=== PATIENT | female | born 1965 | race Caucasian/White ===

== ENCOUNTER 2022-08-11 16:18 | Inpatient (IN) | payer MEDICAID ==
[~2022-08-11] VITALS: Ht 157.5 cm; Wt 50.5 kg
[~2022-08-11 16:18] MED LIST: ATEN50TA41 PO; NICO-687 TD
[2022-08-11 16:37] LABS: BASOPHILS # (AUTO) 0.1 X10'3 (0-0.2); BASOPHILS % (AUTO) 0.9 % (0-1); EOSINOPHILS # (AUTO) 0.1 X10'3 (0-0.9); EOSINOPHILS % (AUTO) 0.7 % (0-6); HEMATOCRIT 22.6 % (35.0-45.0); HEMOGLOBIN 7.7 g/dl (12.0-16.0); LYMPHOCYTES # (AUTO) 1.1 X10'3 (1.1-4.8); LYMPHOCYTES % (AUTO) 8.1 % (21-51); MEAN CORPUSCULAR HEMOGLOBIN 32.1 PG (27.0-31.0); MEAN CORPUSCULAR HGB CONC 34.1 g/dL (33.0-36.5); MEAN CORPUSCULAR VOLUME 94.2 FL (78-98); MEAN PLATELET VOLUME 7.6 FL (7.4-10.4); MONOCYTES # (AUTO) 0.9 X10'3 (0-0.9); MONOCYTES % (AUTO) 6.6 % (2-12); NEUTROPHILS # (AUTO) 11.9 X10'3 (1.8-7.7); NEUTROPHILS % (AUTO) 83.7 % (42-75); PLATELET COUNT 574 X10'3 (140-440); RED CELL DISTRIBUTION WIDTH 18.2 % (11.5-14.5); WHITE BLOOD COUNT 14.2 X10'3 (4.5-11.0)
[2022-08-11 17:00] LABS: ALANINE AMINOTRANSFERASE 10 U/L (12-78); ALBUMIN 2.4 G/DL (3.4-5.0); ALBUMIN/GLOBULIN RATIO 0.9 (1.1-1.5); ALKALINE PHOSPHATASE 74 IU/L (46-116); ANION GAP 10 (8-16); ASPARTATE AMINO TRANSFERASE 17 U/L (10-37); BILIRUBIN,TOTAL 0.2 MG/DL (0.1-1.0); BLOOD UREA NITROGEN 10 MG/DL (7-18); BUN/CREATININE RATIO 10.6 (10.0-20.0); CALCIUM 8.3 MG/DL (8.5-10.1); CHLORIDE 96 MMOL/L (99-107); CREATININE 0.94 MG/DL (0.40-0.90); GLUCOSE 132 MG/DL (70-104); MAGNESIUM 1.8 MG/DL (1.5-2.4); SODIUM 130 MMOL/L (135-145); TOTAL CARBON DIOXIDE 24.2 MMOL/L (24-32); TOTAL PROTEIN 5.2 G/DL (6.4-8.2); eGFR 61 ML/MIN
[2022-08-11 17:10] LABS: POTASSIUM 2.2 MMOL/L (3.5-5.1)
[2022-08-11] MEDS ORDERED: potassium chloride 10mEq ER tablet PO ONE (17:15)
[2022-08-11] MEDS ORDERED: Potassium Cl inj 40 MEQ in normal saline 250ml IV soln 250 ML IV ONE (17:15)
[2022-08-11] MEDS ORDERED: Potassium Cl inj 40 MEQ in sodium chloride 0.45% 500ml 500 ML IV ONE (17:20)
--- NOTE | 2022-08-11 18:23 | NUR ---
ASSUMED CARE FROM MELVIN MANN
[2022-08-11 18:50] LABS: ABSOLUTE RETICS # < 6000 /CUMM (23000-93000); RETICULOCYTE % (AUTO) 4.1 % (0.5-1.5)
[2022-08-11] MEDS ORDERED: oxyCODONE/APAP 10/325mg tablet PO ONE (18:55)
[2022-08-11] MEDS ORDERED: FERR325T29 PO (19:07)
[2022-08-11] MEDS ORDERED: ACET-75 PO (19:07)
[2022-08-11] MEDS ORDERED: KEN0.1O TOP (19:07)
[2022-08-11] MEDS ORDERED: FOLI1TAB27 PO (19:07)
[2022-08-11] MEDS ORDERED: ASPI-1397 PO (19:07)
[2022-08-11] MEDS ORDERED: ATEN-236 PO (19:07)
[2022-08-11] MEDS ORDERED: DICL100G30 TOP (19:07)
[2022-08-11] MEDS ORDERED: CYCL5TAB PO (19:07)
[2022-08-11] MEDS ORDERED: LISI10TA27 PO (19:07)
[2022-08-11] MEDS ORDERED: pantoprazole 40mg IV 80 MG in normal saline 100ml IV soln 100 ML IV ONE (19:10)
[2022-08-11 19:39] LABS: OCCULT BLOOD STOOL POSITIVE (Neg)
--- NOTE | 2022-08-11 19:40 | NUR ---
DR GUPTA AT BEDSIDE
[2022-08-11] MEDS ORDERED: magnesium 4gm in 100ml NS 100 ML IV PRN (20:00)
[2022-08-11] MEDS: K and/or MAG REPLACEMENT MC SCH (20:00)
[2022-08-11] MEDS ORDERED: magnesium hydroxide 30ml (MOM) UD suspension PO PRN (20:00)
[2022-08-11] MEDS ORDERED: acetaminophen 325mg tablet PO PRN ×2 (20:00→20:05)
[2022-08-11] MEDS ORDERED: mag hydrox/Alum hydrox/simeth 30ml oral suspension PO PRN (20:00)
[2022-08-11] MEDS ORDERED: magnesium Cl slow-release 64mg tablet PO PRN (20:00)
[2022-08-11] MEDS ORDERED: potassium Cl 20 mEq SR tablet PO PRN ×2 (20:00)
[2022-08-11] MEDS ORDERED: magnesium 2GM in 50ml NS 50 ML IV PRN (20:00)
[2022-08-11] MEDS ORDERED: potassium Cl 40MEQ/1/2NS 520ml 520 ML IV PRN (20:00)
[2022-08-11] MEDS ORDERED: ondansetron/PF 4mg/2ml inj IV PRN (20:00)
[2022-08-11 20:25] LABS: BASOPHILS % (AUTO) 0.3 % (0-1); EOSINOPHILS % (AUTO) 0.2 % (0-6); HEMATOCRIT 22.1 % (35.0-45.0); HEMOGLOBIN 7.7 g/dl (12.0-16.0); LYMPHOCYTES # (AUTO) 1.1 X10'3 (1.1-4.8); LYMPHOCYTES % (AUTO) 7.2 % (21-51); MEAN CORPUSCULAR VOLUME 94.1 FL (78-98); MEAN PLATELET VOLUME 8.1 FL (7.4-10.4); MONOCYTES # (AUTO) 0.8 X10'3 (0-0.9); MONOCYTES % (AUTO) 5.4 % (2-12); NEUTROPHILS # (AUTO) 13.1 X10'3 (1.8-7.7); NEUTROPHILS % (AUTO) 86.9 % (42-75); PLATELET COUNT 508 X10'3 (140-440); RED BLOOD COUNT 2.35 X10'6 (4.20-5.60); RED CELL DISTRIBUTION WIDTH 18.1 % (11.5-14.5); WHITE BLOOD COUNT 15.1 X10'3 (4.5-11.0)
[2022-08-11 20:27] LABS: APTT 22 SECONDS (22-32)
[2022-08-11] MEDS: docusate sod 100mg capsule PO SCH (20:28)
[2022-08-11 20:32] LABS: % IRON SATURATION 92 % (11-46); IRON 298 UG/DL (49-151); TOTAL IRON BINDING CAPACITY 323 UG/DL (259-388)
[2022-08-11] MEDS: pantoprazole 40MG/NS 100ML BAG 100 ML IV SCH (20:34)
[2022-08-11 20:48] LABS: LIPASE 55 U/L (73-393)
[2022-08-11 21:45] LABS: FERRITIN 280 NG/ML (8-252)
[2022-08-12] VITALS (15 sets, daily range): BP systolic 81–144; BP diastolic 46–73
[2022-08-12] MEDS: potassium Cl 20mEq in NS 1,000 ML IV SCH ×3 (00:21→19:00)
[2022-08-12] MEDS: pantoprazole 40MG/NS 100ML BAG 100 ML IV SCH ×5 (01:29→19:32)
[2022-08-12] MEDS: docusate sod 100mg capsule PO SCH ×2 (07:39→19:33)
[2022-08-12 07:44] LABS: BASOPHILS # (AUTO) 0.1 X10'3 (0-0.2); BASOPHILS % (AUTO) 1.1 % (0-1); EOSINOPHILS # (AUTO) 0.1 X10'3 (0-0.9); EOSINOPHILS % (AUTO) 1.4 % (0-6); LYMPHOCYTES # (AUTO) 1.2 X10'3 (1.1-4.8); LYMPHOCYTES % (AUTO) 15.3 % (21-51); MEAN CORPUSCULAR HEMOGLOBIN 32.2 PG (27.0-31.0); MEAN CORPUSCULAR HGB CONC 33.2 g/dL (33.0-36.5); MEAN CORPUSCULAR VOLUME 97.1 FL (78-98); MEAN PLATELET VOLUME 7.7 FL (7.4-10.4); MONOCYTES # (AUTO) 0.8 X10'3 (0-0.9); MONOCYTES % (AUTO) 10.2 % (2-12); NEUTROPHILS # (AUTO) 5.6 X10'3 (1.8-7.7); PLATELET COUNT 385 X10'3 (140-440); RED BLOOD COUNT 1.73 X10'6 (4.20-5.60); RED CELL DISTRIBUTION WIDTH 18.3 % (11.5-14.5); WHITE BLOOD COUNT 7.8 X10'3 (4.5-11.0)
[2022-08-12 07:53] LABS: HEMOGLOBIN 5.6 g/dl (12.0-16.0)
[2022-08-12 07:54] LABS: HEMATOCRIT 16.8 % (35.0-45.0)
--- NOTE | 2022-08-12 07:57 | NUR ---
PAGER ID: [phone] MESSAGE: [id number] Vic Pascual: critical h&h .16.8. thanks! candice [id number]
[2022-08-12] MEDS: K and/or MAG REPLACEMENT MC SCH ×2 (08:00→19:34)
[2022-08-12 08:11] LABS: ALANINE AMINOTRANSFERASE 7 U/L (12-78); ALBUMIN 1.6 G/DL (3.4-5.0); ALBUMIN/GLOBULIN RATIO 0.7 (1.1-1.5); ALKALINE PHOSPHATASE 63 IU/L (46-116); ANION GAP 7 (8-16); ASPARTATE AMINO TRANSFERASE 10 U/L (10-37); BILIRUBIN,TOTAL 0.1 MG/DL (0.1-1.0); BLOOD UREA NITROGEN 8 MG/DL (7-18); BUN/CREATININE RATIO 11.1 (10.0-20.0); CALCIUM 7.5 MG/DL (8.5-10.1); CHLORIDE 105 MMOL/L (99-107); CREATININE 0.72 MG/DL (0.40-0.90); GLUCOSE 95 MG/DL (70-104); MAGNESIUM 1.9 MG/DL (1.5-2.4); POTASSIUM 3.8 MMOL/L (3.5-5.1); SODIUM 133 MMOL/L (135-145); TOTAL CARBON DIOXIDE 20.8 MMOL/L (24-32); TOTAL PROTEIN 3.8 G/DL (6.4-8.2); eGFR 83 ML/MIN
--- NOTE | 2022-08-12 10:12 | NUR ---
PAGER ID: [phone] MESSAGE: [id number] Vic RAMAN: PATIENT HAS NO PAIN MEDICATION ORDERED. SHE HAD PERCOCET 10 IN ER AND SAID IT HELPED. THANK YOU! VANNESSA [id number]
[2022-08-12] MEDS ORDERED: morphine 2 MG/ML inj. syringe IV PRN (12:45)
[2022-08-12] MEDS: morphine 2 MG/ML inj. syringe IV PRN (13:25)
[2022-08-12] MEDS ORDERED: MIDAZolam 1 MG/ML 5ML VIAL ONE (15:06)
[2022-08-12] MEDS ORDERED: fentaNYL/PF 50MCG/1 ML 2ML syringe ONE (15:06)
[2022-08-12] MEDS: HYDROcodone/acetaminophen 10/325mg tab PO PRN ×2 (17:01→21:03)
[2022-08-12 17:39] LABS: HEMATOCRIT 30.2 % (35.0-45.0); HEMOGLOBIN 10.2 g/dl (12.0-16.0); MEAN CORPUSCULAR HEMOGLOBIN 31.6 PG (27.0-31.0); MEAN CORPUSCULAR HGB CONC 33.6 g/dL (33.0-36.5); MEAN PLATELET VOLUME 7.9 FL (7.4-10.4); PLATELET COUNT 429 X10'3 (140-440); RED BLOOD COUNT 3.22 X10'6 (4.20-5.60); RED CELL DISTRIBUTION WIDTH 16.7 % (11.5-14.5)
--- NOTE | 2022-08-12 18:24 | NUR ---
Problems reprioritized. Patient report given, questions answered & plan of care reviewed with MELVIN Avila.
[2022-08-12] MEDS ORDERED: iohexol 300mg/ml 100ml inj. ONE (20:05)
[2022-08-13] MEDS: morphine 2 MG/ML inj. syringe IV PRN ×2 (00:21→19:14)
[2022-08-13] MEDS: pantoprazole 40MG/NS 100ML BAG 100 ML IV SCH ×5 (00:21→21:48)
[2022-08-13] MEDS: HYDROcodone/acetaminophen 5mg/325mg tablet PO PRN ×3 (01:44→14:04)
[2022-08-13 02:00] VITALS: BP 118/61
[2022-08-13] MEDS: potassium Cl 20mEq in NS 1,000 ML IV SCH ×2 (05:00→15:00)
--- NOTE | 2022-08-13 06:36 | NUR ---
Problems reprioritized. Patient report given, questions answered & plan of care reviewed with Lito CHARLES.
[2022-08-13 07:00] VITALS: BP 126/75
[2022-08-13] MEDS: docusate sod 100mg capsule PO SCH ×2 (07:29→20:42)
[2022-08-13] MEDS: K and/or MAG REPLACEMENT MC SCH ×2 (07:29→20:00)
--- NOTE | 2022-08-13 07:55 | NUR ---
WOC NOTE: LATE ENTRY seen 08/12/22 @ 1545 Per medical records, this is a 57-year-old female who presented for dizziness and a fall to the ED. Patient notes she was at home and all of a sudden got very dizzy and lightheaded and slightly nauseous. She fell and contused her left shoulder and chin. Admit for GI bleed, guaiac positive. No pertinent past medical history. Social history positive for ETOH and tobacco abuse. Most recent labs of WBC 7.8, H&H 5.6 and 16.8, glucose 95, albumin 1.6 and total protein 3.8. Wound care in for skin assessment secondary to nursing consult for left elbow skin tear. The patient is resting comfortably at nurse arrival, awake and in agreement with assessment and intent. ID by name and / medical band. She has a sling to the left shoulder, apparently she did sustain an acute nondisplaced fracture at the surgical neck of the left humerus with fracture involving the lesser and greater tubercles. She has a small skin tear to the left elbow, about 0.5cm x0.2 cm with a dressing in place. Removed and cleansed well. The wound bed is superficial and pink in color with minimal serous drainage, surrounding skin WNL. Wound care provided. Patient appears independent with ADLS. She was educated on importance of turning and repositioning every 1-2 hours and to call for assistance if needed, on protein intake to facilitate wound healing as well as to stay hydrated. She verbalized understanding and stated she would rather move herself due to the pain in her left shoulder. Patient was left in a position of comfort, heels floated, call light in reach, bed locked and in the lowest position. Reported off to primary nurse at the bedside. WOC will not need to follow.
[2022-08-13 08:18] LABS: BASOPHILS # (AUTO) 0.1 X10'3 (0-0.2); BASOPHILS % (AUTO) 1.1 % (0-1); EOSINOPHILS # (AUTO) 0.2 X10'3 (0-0.9); EOSINOPHILS % (AUTO) 2.2 % (0-6); HEMOGLOBIN 9.4 g/dl (12.0-16.0); LYMPHOCYTES # (AUTO) 1.7 X10'3 (1.1-4.8); MEAN CORPUSCULAR HEMOGLOBIN 31.9 PG (27.0-31.0); MEAN CORPUSCULAR HGB CONC 33.8 g/dL (33.0-36.5); MEAN CORPUSCULAR VOLUME 94.4 FL (78-98); MEAN PLATELET VOLUME 7.8 FL (7.4-10.4); MONOCYTES # (AUTO) 0.9 X10'3 (0-0.9); MONOCYTES % (AUTO) 10.1 % (2-12); NEUTROPHILS # (AUTO) 6.2 X10'3 (1.8-7.7); NEUTROPHILS % (AUTO) 67.6 % (42-75); PLATELET COUNT 413 X10'3 (140-440); RED BLOOD COUNT 2.96 X10'6 (4.20-5.60); WHITE BLOOD COUNT 9.2 X10'3 (4.5-11.0)
[2022-08-13 08:43] LABS: ALANINE AMINOTRANSFERASE 9 U/L (12-78); ALBUMIN 1.9 G/DL (3.4-5.0); ALBUMIN/GLOBULIN RATIO 0.8 (1.1-1.5); ALKALINE PHOSPHATASE 74 IU/L (46-116); ANION GAP 7 (8-16); ASPARTATE AMINO TRANSFERASE 13 U/L (10-37); BILIRUBIN,TOTAL 0.4 MG/DL (0.1-1.0); BLOOD UREA NITROGEN 7 MG/DL (7-18); BUN/CREATININE RATIO 10.1 (10.0-20.0); CALCIUM 7.7 MG/DL (8.5-10.1); CHLORIDE 105 MMOL/L (99-107); CREATININE 0.69 MG/DL (0.40-0.90); GLUCOSE 78 MG/DL (70-104); MAGNESIUM 1.8 MG/DL (1.5-2.4); POTASSIUM 4.4 MMOL/L (3.5-5.1); SODIUM 132 MMOL/L (135-145); TOTAL CARBON DIOXIDE 20.1 MMOL/L (24-32); TOTAL PROTEIN 4.4 G/DL (6.4-8.2); eGFR 88 ML/MIN
[2022-08-13 10:21] LABS: CARCINOEMBRYONIC ANTIGEN 3.3 ng/mL (0.0-4.7)
[2022-08-13 11:00] VITALS: BP 115/74
[2022-08-13 15:00] VITALS: BP 151/74
[2022-08-13 18:30] VITALS: BP 152/76
--- NOTE | 2022-08-13 18:46 | NUR ---
Patient in room PCU 3020. I have received report from sedrick CHARLES and had the opportunity to ask questions and assume patient care.
[2022-08-13] MEDS: HYDROcodone/acetaminophen 10/325mg tab PO PRN (20:43)
[2022-08-13 23:00] VITALS: BP 118/72
[2022-08-14] MEDS: potassium Cl 20mEq in NS 1,000 ML IV SCH (01:24)
[2022-08-14] MEDS: pantoprazole 40MG/NS 100ML BAG 100 ML IV SCH ×2 (01:25→06:27)
[2022-08-14 03:00] VITALS: BP 118/72
[2022-08-14 06:08] LABS: BASOPHILS # (AUTO) 0.1 X10'3 (0-0.2); BASOPHILS % (AUTO) 0.9 % (0-1); EOSINOPHILS # (AUTO) 0.3 X10'3 (0-0.9); EOSINOPHILS % (AUTO) 3.2 % (0-6); HEMATOCRIT 26.3 % (35.0-45.0); HEMOGLOBIN 8.9 g/dl (12.0-16.0); LYMPHOCYTES # (AUTO) 1.5 X10'3 (1.1-4.8); LYMPHOCYTES % (AUTO) 17.3 % (21-51); MEAN CORPUSCULAR HEMOGLOBIN 32.1 PG (27.0-31.0); MEAN CORPUSCULAR HGB CONC 33.9 g/dL (33.0-36.5); MEAN CORPUSCULAR VOLUME 94.7 FL (78-98); MEAN PLATELET VOLUME 7.7 FL (7.4-10.4); MONOCYTES # (AUTO) 0.9 X10'3 (0-0.9); MONOCYTES % (AUTO) 9.9 % (2-12); NEUTROPHILS % (AUTO) 68.7 % (42-75); PLATELET COUNT 433 X10'3 (140-440); RED BLOOD COUNT 2.78 X10'6 (4.20-5.60); RED CELL DISTRIBUTION WIDTH 17.3 % (11.5-14.5); WHITE BLOOD COUNT 8.7 X10'3 (4.5-11.0)
[2022-08-14 06:30] LABS: ALANINE AMINOTRANSFERASE 9 U/L (12-78); ALBUMIN 1.6 G/DL (3.4-5.0); ALBUMIN/GLOBULIN RATIO 0.7 (1.1-1.5); ALKALINE PHOSPHATASE 69 IU/L (46-116); ANION GAP 6 (8-16); ASPARTATE AMINO TRANSFERASE 15 U/L (10-37); BILIRUBIN,TOTAL 0.2 MG/DL (0.1-1.0); BLOOD UREA NITROGEN 6 MG/DL (7-18); BUN/CREATININE RATIO 8.8 (10.0-20.0); CALCIUM 7.3 MG/DL (8.5-10.1); CHLORIDE 108 MMOL/L (99-107); CREATININE 0.68 MG/DL (0.40-0.90); GLUCOSE 84 MG/DL (70-104); MAGNESIUM 1.6 MG/DL (1.5-2.4); SODIUM 133 MMOL/L (135-145); TOTAL CARBON DIOXIDE 19.1 MMOL/L (24-32); TOTAL PROTEIN 3.9 G/DL (6.4-8.2); eGFR 89 ML/MIN
--- NOTE | 2022-08-14 06:30 | NUR ---
Patient in room PCU 3020. I have received report from MELVIN Avila and had the opportunity to ask questions and assume patient care.
--- NOTE | 2022-08-14 06:45 | NUR ---
Problems reprioritized. Patient report given, questions answered & plan of care reviewed with Caty RN.
[2022-08-14] MEDS: HYDROcodone/acetaminophen 10/325mg tab PO PRN ×3 (06:53→15:08)
[2022-08-14] MEDS: docusate sod 100mg capsule PO SCH (08:00)
[2022-08-14] MEDS: K and/or MAG REPLACEMENT MC SCH (09:38)
[2022-08-14] MEDS ORDERED: PANT-47 PO (12:05)
[2022-08-14] MEDS ORDERED: TRAM50TA2 PO ×2 (12:05→12:06)
--- NOTE | 2022-08-14 15:20 | NUR ---
DC inst provided to pt. IV DC'd, tip intact. All belongings sent w/pt. WC to vehicle.
[2022-08-14] MEDS ORDERED: pantoprazole 40mg Tablet.DR PO SCH (20:00)
== END 2022-08-14 15:21 | disposition home or self-care (01) | DRG 241 ==
LOC: ER 16:18 → ED HOLD 20:03 → PCU 3S 23:45
PROVIDERS: ADMIT Internal Medicine; ATTEND Family Medicine
PROC: 0DB58ZX Excision of Esophagus, Via Natural or Artificial Opening Endoscopic, Diagnostic (ICD-10-PCS; 2022-08-11)
PROC: 0DB78ZX Excision of Stomach, Pylorus, Via Natural or Artificial Opening Endoscopic, Diagnostic (ICD-10-PCS; 2022-08-11)
PROC: 30233N1 Transfusion of Nonautologous Red Blood Cells into Peripheral Vein, Percutaneous Approach (ICD-10-PCS; principal; 2022-08-12)
PROC: BW211ZZ Computerized Tomography (CT Scan) of Abdomen and Pelvis using Low Osmolar Contrast (ICD-10-PCS; 2022-08-12)
DX: K29.71 Gastritis, unspecified, with bleeding (principal); D62 Acute posthemorrhagic anemia; K26.4 Chronic or unspecified duodenal ulcer with hemorrhage; E87.1 Hypo-osmolality and hyponatremia; F17.210 Nicotine dependence, cigarettes, uncomplicated; K21.00 Gastro-esophageal reflux disease with esophagitis, without bleeding; N18.9 Chronic kidney disease, unspecified; K44.9 Diaphragmatic hernia without obstruction or gangrene; E87.6 Hypokalemia; W18.39XA Other fall on same level, initial encounter; Z90.710 Acquired absence of both cervix and uterus; Y93.89 Activity, other specified; Y99.8 Other external cause status; Y92.098 Other place in other non-institutional residence as the place of occurrence of the external cause
CPT/HCPCS: 36415; 36430; 43239; 73030; 74178; 80053; 82272; 82378; 82728; 83540; 83550; 83690; 83735; 83880; 84132; 84484; 85025; 85027; 85045; 85610; 85730; 86301; 86885; 86900; 86901; 86920; 87081; 93005; 99152; 99285; A4565; A6212; A6260; A6449; C9113; G0378; J2250; J2270; J2405; J3010; J3480; J3490; J7030; J7040; P9016; Q9967

== ENCOUNTER 2024-03-09 07:17 | Outpatient (CLI) | payer MEDICAID ==
[~2024-03-09] VITALS: Ht 158.8 cm; Wt 48.1 kg
[~2024-03-09 07:17] MED LIST changes: +ACET-75 PO; +ATEN-236 PO; -ATEN50TA41 PO; +CYCL-920 PO; +FERR325T29 PO; +FOLI1TAB27 PO; +KEN0.1O TOP; +LISI10TA27 PO; -NICO-687 TD; +PANT-47 PO
[2024-03-09] MEDS: albuterol 2.5 MG/3 ML nebule NEB ONE (08:06)
[2024-03-09 08:07] VITALS: PULSE 83; RESP 17; O2SAT 95
[2024-03-09 08:19] VITALS: PULSE 79; RESP 16
== END 2024-03-09 23:59 | disposition home or self-care (01) ==
LOC: RT 07:17
PROVIDERS: ATTEND Family Medicine
DX: R94.2 Abnormal results of pulmonary function studies (principal); J43.2 Centrilobular emphysema
CPT/HCPCS: 94060; 94760

== ENCOUNTER 2024-11-04 15:27 | Inpatient (IN) | payer MEDICAID ==
[~2024-11-04] VITALS: Ht 165.1 cm; Wt 50.0 kg
[2024-11-04] MEDS: diazepam inj 5 MG/ML inj. IV ONE (16:04)
[2024-11-04] MEDS: normal saline 1000ml 1,000 ML IV ONE (16:04)
[2024-11-04] MEDS: haloperidol lactate 5mg/ml inj IM ONE ×2 (16:04→20:14)
--- NOTE | 2024-11-04 16:05 | ELECTROCARDIOGRAPH REPORT ---
[facility] Test Date: 2024-11-04 Test Time: 16:04:01 Pat Name: ADAM RAMAN Department: [facility] Patient ID: [id number] Room: Gender: F Employment Adjudicator: : 1965 Requested By: CHIDI KUO Order Number: [id number] Reading MD: Dr. Chidi Kuo Measurements Intervals [place] Rate: 61 P: 74 CA: 162 QRS: 71 QRSD: 87 T: 70 QT: 458 QTc: 462 Interpretive Statements Sinus rhythm Anteroseptal infarct, age indeterminate Electronically Signed On 11-04-2024 17:54:[address] Chidi Kuo Please click the below link to view image of tracing.
[2024-11-04 16:11] LABS: MEAN PLATELET VOLUME 7.9 FL (7.4-10.4); RED CELL DISTRIBUTION WIDTH 15.3 % (11.5-14.5)
[2024-11-04 16:29] LABS: CREATININE 1.01 MG/DL (0.40-0.90); PRO BRAIN NATRIURETIC PEPTIDE 338 PG/ML (0-125); TOTAL CARBON DIOXIDE 20.5 MMOL/L (24-32); eCRCL 47 ML/MIN; eGFR 56 ML/MIN
--- NOTE | 2024-11-04 16:30 | Physician Documentation ---
History of Present Illness ~ Chief Complaint: ETOH Stated Complaint: ALOC Time Seen by MD: 16:19 Primary Medical Doctor: EUSEBIO LINDER Mode of Arrival: Ambulatory HPI 59-year-old female presents to the ED on of concerns of possible EtOH after reportedly being found unresponsive by her son today. The son says that he left two weeks ago and came home to find her an unresponsive condition. Patient's son indicated that patient was found cyanotic lips having a pale skin color in altered. When found by EMS patient was up and walking around. EMS was unable to get quit questions answered by the patient. During my interview patient responded to her name states that she does drink ecxessive alcohol but denies drinking alcohol today. Appears restless. Says that she is here due to her anxiety. Tetanus within 5 years?: No Medication Reconciliation Allergies: Coded Allergies: No Known Allergies (Unverified , 06/12/22) Scheduled Atenolol (Atenolol), 1 TAB PO BID, (Reported) Ferrous Sulfate (Ferrous Sulfate), 1 TAB PO BID, (Reported) Folic Acid* (Folic Acid*), 1 TAB PO DAILY, (Reported) Lisinopril (Lisinopril), 1 TAB PO DAILY, (Reported) Pantoprazole Sodium (PROTONIX tablet), 40 MG PO BID Triamcinolone Acetonide 0.1% Crm* (Kenalog 0.1% Crm*), TOP BID, (Reported) Scheduled PRN Acetaminophen (Acetaminophen), 2 TAB PO Q8H PRN for pain, (Reported) Cyclobenzaprine HCl (Cyclobenzaprine HCl), 1 TAB PO HS PRN for muscle spasm, (Reported) Past Medical History Past Medical History: No Pertinent History Past Surgical History: noncontributory Alcohol Use: Abuse Drug Use: none Lives with: Family Lives In: Home Occupation: disabled Review of Systems All Other Systems at this time: Reviewed and Negative ROS As stated above in the HPI, otherwise all systems are reviewed and negative. Physical Exam Vital Signs: Temperature: 98.4, Source: Oral, Heart Rate: 82, Respiratory Rate: 22, BP: 148/81, Pulse Oximetry: 97, Weight: 50.000 Oxygen Flow Rate: 0 Physical Exam General: Alert, no apparent distress. Respiratory: Lungs clear, no respiratory distress. Cardiovascular: Regular rate and rhythm, no murmurs. Gastrointestinal: Soft, nontender, nondistended. Bowels sounds present. Neurologic:Aox3 Psychiatric: Normal mood and affect. Skin: Normal color, warm and dry. No edema, no ecchymosis. Progress Results/Orders Results/Orders Orders - GUY LOBO SALES PROGRAM COORDINATOR Ct Head (11/04/24 18:44) Page Hospitalist (11/04/24 ) Completed Orders - GUY LOBO SALES PROGRAM COORDINATOR Ammonia (11/04/24 16:50) Drug Screen, Urine (11/04/24 16:59) Normal Saline 1000ml (0.9% Sodium Chlori (11/04/24 17:55) Ethanol (11/04/24 18:37) Ua W/Microscopic, Cult If Ind (11/04/24 18:00) Medications Received in ER Medications (Trade) Dose Ordered Sig/Kemal Route PRN Reason Start Time Stop Time Status Last Admin Dose Admin (Haldol) 5 mg ONCE ONCE IM 11/04/24 15:55 11/04/24 15:56 DC 11/04/24 16:04 5 MG (Valium inj) 5 mg ONCE ONCE IV 11/04/24 15:55 11/04/24 15:56 DC 11/04/24 16:04 5 MG Sodium Chloride 1,000 ml @ 1,000 mls/hr ONCE ONCE IV 11/04/24 15:55 11/04/24 16:54 DC 11/04/24 16:04 1,000 MLS/HR (0.9% sodium chloride (NS) 1000ml IV soln) 1,000 ml ONCE ONCE IVB 11/04/24 17:55 11/04/24 17:56 DC 11/04/24 18:17 1,000 ML Vital Signs 11/04/24 11/04/24 11/04/24 11/04/24 15:28 15:41 16:30 17:30 Temp 98.4 Pulse 82 75 53 Resp 22 11 18 B/P (MAP) 148/81 117/70 (86) 132/55 (80) Pulse Ox 97 99 98 O2 Flow Rate 0 0 0 11/04/24 11/04/24 18:32 19:22 Temp 98.4 98.4 Pulse 101 70 Resp 16 18 B/P (MAP) 138/78 (98) 146/81 (102) Pulse Ox 99 98 O2 Flow Rate 0 0 Laboratory Tests Test 11/04/24 15:42 11/04/24 17:08 11/04/24 18:00 11/04/24 18:14 White Blood Count 10.2 Red Blood Count 4.90 Hemoglobin 14.5 Hematocrit 43.1 Mean Corpuscular Volume 87.9 Mean Corpuscular Hemoglobin 29.6 Mean Corpuscular Hemoglobin Concent 33.7 Red Cell Distribution Width 15.3 H Platelet Count 269 Mean Platelet Volume 7.9 Neutrophils (%) (Auto) 79.4 H Lymphocytes (%) (Auto) 11.3 L Monocytes (%) (Auto) 7.9 Eosinophils (%) (Auto) 0.6 Basophils (%) (Auto) 0.8 Neutrophils # (Auto) 8.1 H Lymphocytes # (Auto) 1.2 Monocytes # (Auto) 0.8 Eosinophils # (Auto) 0.1 Basophils # (Auto) 0.1 CBC Comment Sodium Level 139 Potassium Level 3.5 Chloride Level 105 Carbon Dioxide Level 20.5 L Anion Gap 14 Blood Urea Nitrogen 15 Creatinine 1.01 H Estimated GFR/1.73 m2 56 BUN/Creatinine Ratio 14.9 Glucose Level 103 Calcium Level 9.1 Total Bilirubin 0.7 Direct Bilirubin 0.2 Aspartate Amino Transf (AST/SGOT) 26 Alanine Aminotransferase (ALT/SGPT) 18 Alkaline Phosphatase 67 Troponin I High Sensitivity 12 21 Pro-B-Type Natriuretic Peptide 338 H Total Protein 6.9 Albumin 3.9 Globulin 3.0 Albumin/Globulin Ratio 1.3 Chemistry Comments Ammonia < 10 L Urine Specimen Description Cln catch midstream Urine Color Yellow Urine Clarity Clear Urine pH 6.0 Urine Specific [place] <=1.005 Urine Protein Negative Urine Glucose (UA) 500 H Urine Ketones Negative Urine Occult Blood Small Urine Nitrite Negative Urine Bilirubin Negative Urine Urobilinogen 0.2 Urine Leukocyte Esterase Negative Urine RBC None seen Urine WBC 0-4 Urine Squamous Epithelial Cells Few Urine Bacteria None seen Urine Culture Indicated Not ind Volume Urine Centrifuged 10 ml Urine Comment Urine Opiates Screen Negative Urine Methadone Screen Negative Urine Fentanyl Screen Negative Urine Barbiturates Screen Negative Urine Phencyclidine Screen Negative Urine Amphetamines Screen Negative Urine Benzodiazepines Screen Negative Urine Cocaine Screen Negative Urine Cannabinoids Screen Negative Drug Screen Comment Troponin I High Sens Percent Delta 75 Troponin I Hi Sens Absolute Change 9 Ethyl Alcohol Level < 10 Medical Decision Making Differential Dx:Considerations: Intoxication - ETOH, Intoxication - other drug, Sub. Abuse -continuous, Sub. Abuse-intermittent, Skull fracture, Fracture - other bone, Personality disorder, Closed head injury, Cervical spine injury, Abrasion, Confusion, Hematoma, Laceration, Foreign body, Dehydration, Encephalopathy, Hepatitis, Pancreatitis, Thiamine deficiency, Other Departure Disposition: 01 HOME / SELF CARE / HOMELESS Impression: Primary Impression: Metabolic encephalopathy Additional Impressions: Alcohol abuse Alteration consciousness Condition: Stable Referrals: NO PRIMARY CARE PROVIDER (PCP) Signature Scribe Signature: r Attestation: Scribed for Guy Lobo Consumer Credit Counselor by Guy Camarillo NP . 11/04/24 17:54 GUY LOBO NP Nov 04, 2024 16:30
--- NOTE | 2024-11-04 16:52 | RADIOLOGY REPORT ---
CHEST RADIOGRAPH Indication: CP Technique: DI CHEST,SINGLE VIEW Comparison: None FINDINGS: The cardiac silhouette is unremarkable. The lungs demonstrate no pulmonary airspace consolidation. Th e pulmonary vasculature is unremarkable. There is no pleural effusion. There is no pneumothorax. IMPRESSION: No pulmonary airspace consolidation.
[2024-11-04] MEDS: normal saline 1000ML IV soln IVB ONE (18:17)
[2024-11-04 18:19] LABS: URINE AMPHETAMINE SCREEN NEGATIVE (Neg); URINE BARBITUATE SCREEN NEGATIVE (Neg); URINE BENZODIAZEPINES SCREEN NEGATIVE (Neg); URINE CANNABINOID SCREEN NEGATIVE (Neg); URINE COCAINE SCREEN NEGATIVE (Neg); URINE METHADONE SCREEN NEGATIVE (Neg); URINE OPIATE SCREEN NEGATIVE (Neg); URINE PHENCYCLIDINE SCREEN NEGATIVE (Neg)
[2024-11-04 18:50] LABS: LEUKOCYTE ESTERASE ,URINE NEGATIVE (Neg); NITRITES, URINE NEGATIVE (Neg); OCCULT BLOOD,URINE SMALL (Neg)
[2024-11-04 18:56] LABS: UA COLLECTION TYPE CLN CATCH MIDSTREAM
[2024-11-04 18:57] LABS: SQUAMOUS EPITHELIAL CELL,UR FEW /LPF (FEW)
[2024-11-04 19:03] LABS: ETHANOL < 10 MG/DL (<10)
[2024-11-04 19:22] VITALS: PULSE 70; RESP 18; O2SAT 98
[2024-11-04] MEDS ORDERED: magnesium sulf-water 4G/100mL 100 ML IV PRN (19:40)
[2024-11-04] MEDS ORDERED: magnesium sulf-water 2g/50mL 50 ML IV PRN (19:40)
[2024-11-04] MEDS ORDERED: magnesium Cl slow-release 64mg tablet PO PRN (19:40)
[2024-11-04] MEDS ORDERED: magnesium hydroxide 30ml (MOM) UD suspension PO PRN (19:40)
[2024-11-04] MEDS ORDERED: ondansetron/PF 4mg/2ml inj IV PRN (19:40)
[2024-11-04] MEDS ORDERED: potassium Cl 40MEQ/1/2NS 520ml 520 ML IV PRN (19:40)
[2024-11-04] MEDS ORDERED: mag hydrox/Alum hydrox/simeth 30ml oral suspension PO PRN (19:40)
[2024-11-04] MEDS: docusate sod 100mg capsule PO SCH (20:00)
[2024-11-04] MEDS: K and/or MAG REPLACEMENT MC SCH (20:00)
[2024-11-04] MEDS: heparin, porcine 5000 units/ml vial SQ SCH (20:14)
--- NOTE | 2024-11-04 20:15 | HISTORY AND PHYSICAL-Residence ---
History & Physical Providers to CC Resident Creating Document: SARAH FORMANDANNYROLAND MIKE CC: ARLEY GREGORY MD ~ History of Present Illness Primary Medical Doctor: EUSEBIO LINDER Reason for Admit\Complaint: ALOC History of Present Illness Patient is a 59-year-old female with possible history of alcohol abuse, COPD, and hypertension (per prior records) brought to the ED by EMS due to altered level of consciousness. At the time of my exam patient was significantly confused and agitated, therefore, history is limited. Patient does report that she drinks beer every day, unable to state how much exactly she drinks, she stated last drink was this morning. She also reported shortness of breath. Denied chest pain, fever, chills. Also denied taking any medications at home. I attempted to call her son Leo, but no answer. Left phone number to call back. Allergies: Coded Allergies: No Known Allergies (Unverified , 06/12/22) Home Medications Home Medications Active PROTONIX tablet (Pantoprazole Sodium) 40 Mg Tablet.dr 40 Mg PO BID Reported Cyclobenzaprine HCl 5 Mg Tablet 1 Tab PO HS PRN Atenolol 25 Mg Tablet 1 Tab PO BID Kenalog 0.1% Crm* (Triamcinolone Acetonide) 1 Applic Tube TOP BID Lisinopril 10 Mg Tablet 1 Tab PO DAILY Acetaminophen 500 Mg Tablet 2 Tab PO Q8H PRN Folic Acid* (Folic Acid) Y Tab 1 Tab PO DAILY Ferrous Sulfate 325 Mg Tablet 1 Tab PO BID Past Medical History Past Medical History Possible history of alcohol abuse COPD Hypertension Past Surgical History Surgical History Comment Unknown Past Social History Smoking: Other (History of COPD, unable to determine if she is currently smoking) Alcohol Use: Abuse Drug Use: None Lives with: Family Lives In: Home Occupation: disabled ROS ROS Limited due to altered level consciousness. However, denies except for positives mentioned in HPI Exam Vitals: Vital Signs Date Time Temp Pulse Resp B/P (MAP) Pulse Ox O2 Delivery O2 Flow Rate FiO2 11/04/24 19:22 98.4 70 18 146/81 (102) 98 0 General: General: awake, slightly agitated, oriented to self only HEENT: Moderate pallor present, no icterus, slightly mucous membranes Neck: No masses and tenderness Resp: Unlabored. Coarse breath sounds bilaterally Chest: Normal expansion Cardiovascular: Slightly tachycardic, regular rhythm, normal S1 and S2 without murmur, rub or gallop Abdomen: Soft and nontender, no organomegaly, no guarding and rigidity, bowel sounds present Neuro: Limited due to altered level of consciousness, but able to move all extremities, opens her eyes and answers some questions, pupils are equal Extremities: No cyanosis,clubbing or edema Skin: Warm and Dry. No lesions Psych: Confused, agitated Diagnostic Data Last Recorded Lab Results: 11/04/24 1542 11/04/24 1542 Advance Care Planning Advanced Care plannin - 30 Minutes Additional Plan Patient is a 59-year-old female with possible history of alcohol abuse, COPD, and hypertension (per prior records) brought to the ED by EMS due to altered level of consciousness. Admitted with altered level of consciousness possibly due to alcohol withdrawal protocol Acute encephalopathy possibly metabolic 2/2 alcohol withdrawal Ruled out toxic encephalopathy Suspected alcohol use disorder Patient is hemodynamically stable with no apparent focal deficit White count is normal Ammonia levels are normal Urine drug screen is negative and alcohol levels are normal Urinalysis negative CT head with no obvious acute changes per my own read. Pending radiologist's report Chest x-ray is unremarkable Received Haldol and Ativan in ED Will start alcohol withdrawal protocol Will order Baclophen levels, which patient takes according to external meds (will take 5-10 days per lab) Pending TSH Continue tele monitoring director of physiotherapy services consult in place Patient was discussed in detail with night lawn sprinkler installer Dr Gregory, who in view of no clear cause for her agitation/confusion, recommended transferring pt to PCU from ortho/neuro. In addition, recommended neurology consult, procalcitonin, lactic acid, Vit B12 levels and to consider LP if infection is suspected. He also recommended a sitter and Q1hr neuro checks. Orders placed DEANDRA, likely prerenal secondary to tubular stasis Moderate dehydration Good urine output IV NS at 75 cc/hour Urine lytes ordered Continue monitoring BMP Elevated proBNP ProBNP is 338 Echocardiogram from 2022 was unremarkable except for possible aortic tear Will repeat echocardiogram Fluids as above Monitor for fluid overload COPD, not in exacerbation DuoNebs q.4 PRN Hypertension Pending med rec Code Status: Assumed full code. Reassess when mental status improves DVT prophylaxis: Heparin Nutrition: Regular diet PT: Ordered Prognosis: Guarded Disposition: Admit to ortho/neuro. Continue medical management Roland Cannon MD Internal Medicine Resident PGY-2 Attending Addendum I saw and discussed the patient with the resident team I saw her via the HIPAA compliant video system I suggested she is transferred to a monitored setting Neuro consult we will expand some of our medicine work up too. We will follow I agree with plan of care as documented Date of Service: Nov 04, 2024 Billing Provider: ARLEY GREGORY MD, LEONARDO LUIS Nov 04, 2024 20:15 ARLEY GREGORY MD Nov 05, 2024 04:25
--- NOTE | 2024-11-04 20:53 | RADIOLOGY REPORT ---
COMPUTERIZED TOMOGRAPHY OF THE HEAD WITHOUT CONTRAST REASON FOR STUDY: Altered level of consciousness COMPARISON: None TECHNIQUE: Helical tomographic scans were obtained through the brain. 2-D coronal and sagittal refor matted images are provided. Radiation optimization: All CT scans at this facility use at least one of these dose optimization techniques: Automated exposure control mA and/or kV adjustment per patient s ize (includes targeted exams where dose is matched to clinical indication) or iterative reconstructio n. RADIATION DOSE: CTDI: 61 mGy DLP: 1155 mGy-cm FINDINGS: No suspicious intracranial hyperdensity to suggest acute blood. There is a small old infar ct in the left cerebellum. There is no mass effect nor midline shift. There is no hydrocephalus. The suprasellar cistern is intact. The calvarium is intact. The visualized mastoid air cells and paranas al sinuses are clear. The patient is status post bilateral lens surgeries. IMPRESSION: No acute intracranial abnormality. 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
[2024-11-04] MEDS ORDERED: ipratropium/albuterol 3ml nebule NEB PRN (20:55)
[2024-11-04] MEDS: PERFLUTREN PROTEIN-A MICROSPHR (Optison) 0.22 MG/ML 3ML VIAL IV ONE (21:21)
[2024-11-04] MEDS: thiamine 100mg/ml 2ml inj. IV SCH (21:22)
[2024-11-04] MEDS: normal saline 1000ml 1,000 ML IV SCH (21:22)
[2024-11-04] MEDS: diazepam inj 5 MG/ML inj. IV PRN (21:23)
[2024-11-05] VITALS (10 sets, daily range): BP systolic 120–192; BP diastolic 70–113; PULSE 68–99; RESP 12–20; TEMP 97–97.6; O2SAT 90–99
[2024-11-05] MEDS: haloperidol lactate 5mg/ml inj IM PRN (02:10)
[2024-11-05 06:28] LABS: RED CELL DISTRIBUTION WIDTH 15.5 % (11.5-14.5)
[2024-11-05 06:29] LABS: MEAN PLATELET VOLUME 7.5 FL (7.4-10.4)
[2024-11-05 06:31] LABS: INR 1.1 INR
[2024-11-05 07:06] LABS: CREATININE 0.79 MG/DL (0.40-0.90); PHOSPHORUS 2.6 MG/DL (2.3-4.5); TOTAL CARBON DIOXIDE 16.2 MMOL/L (24-32); eCRCL 61 ML/MIN; eGFR 74 ML/MIN
[2024-11-05] MEDS: folic acid 1mg/0.2ml inj IV SCH (09:43)
[2024-11-05] MEDS: hydrALAZINE 20mg/ml inj. IV PRN (09:44)
[2024-11-05] MEDS: potassium Cl 20 mEq SR tablet PO PRN ×2 (09:47→14:53)
[2024-11-05] MEDS: multivitamins, therapeutics tablet PO SCH (09:47)
[2024-11-05] MEDS ORDERED: EMPA10TA PO (12:42)
[2024-11-05] MEDS ORDERED: MONT-40 PO (12:42)
[2024-11-05] MEDS ORDERED: SACU1TAB PO (12:43)
[2024-11-05] MEDS ORDERED: BACL20TA PO (12:43)
[2024-11-05] MEDS ORDERED: CHOL500044 PO (12:52)
[2024-11-05] MEDS: lactose-reduced food (Ensure Enlive) - 237ml bottle PO SCH (13:19)
--- NOTE | 2024-11-05 13:54 | CONSULTATION REPORT ---
History of Present Illness Providers to CC ~ Reason for Admit\\Admit Dx: ALOC Refering MD: EUSEBIO MARES BRADFORD Allergies: Coded Allergies: No Known Allergies (Unverified , 06/12/22) Home Medications Home Medications Active Reported Vitamin D3 (Cholecalciferol (Vitamin D3)) 125 Mcg (5000 Unit) Tablet 1 Tab PO DAILY Baclofen 20 Mg Tablet 1 Tab PO QID Entresto 24 mg-26 mg Tablet (Sacubitril/Valsartan) 24 Mg-26 Mg Tablet 1 Tab PO BID Jardiance (Empagliflozin) 10 Mg Tablet 1 Tab PO DAILY Montelukast Sodium 10 Mg Tablet 1 Tab PO DAILY Acetaminophen 500 Mg Tablet 2 Tab PO Q8H PRN Physical Exam Last Vital Signs Recorded: Temperature: 97.6, Source: Oral, Heart Rate: 99, Respiratory Rate: 20, BP: 151/91, Pulse Oximetry: 99, Weight: 50.000 Results Diagram Lab Result Diagram: 11/05/24 0609 11/05/24 0609 Assessment/Plan Additional Plan [place] Neuro Note # Demographics Consult Type: General Neurology Patient Location: Inpatient First Name: Salo Last Name: Ankur Date of : 1965 Age: 59 Gender: Female Facility: [facility] Time of Initial Page (): 11/05/2024 13:04 First Contact with Site (): 11/05/2024 13:04 # HPI Chief Complaint: - altered mental state History: 59 y/o woman admitted with altered mental status, possible EtOH withdrawal. Patient reports she is admitted to hospital due to "alcoholism." Has had similar admissions before. Now feels fine. No hx of seizures. # Scores Time of exam and NIHSS (): 11/05/2024 13:50 Level of Consciousness 1a: [0] = Alert; keenly responsive LOC Questions 1b: [1] = Answers one correctly LOC Commands 1c: [0] = Performs both tasks correctly Best Gaze 2: [0] = Normal Visual 3: [0] = No visual loss Facial Palsy 4: [0] = Normal symmetrical movements Motor Arm Left 5a: [0] = No drift Motor Arm Right 5b: [0] = No drift Motor Leg Left 6a: [0] = No drift Motor Leg Right 6b: [0] = No drift Limb Ataxia 7: [0] = Absent Sensory 8: [0] = Normal Best Language 9: [0] = No aphasia Dysarthria 10: [0] = Normal Extinction and Inattention 11: [0] = No abnormality NIHSS Total: 1 # Exam Mental Status: States month is May # Assessment Impression: - Altered Mental Status Patient endorsing alcoholism as source. No other focal deficits to suggest stroke. No known seizure activity. No fevers and no obvious meningismus on exam # Plan Other: - If patient has any neurological deterioration please call me back immediately Additional Recommendations: Continue supportive care, treatment of EtOH withdrawal including vitamins. Please call again if additional Neurology input requested. # Logistics Attestation of consult completion: The patient is located at: [facility]. Facility staff participated in the visit. I performed this telemedicine visit from my offsite office utilizing interactive 2 way audio and visual telecommunication technology at the request of the onsite inpatient provider. Total time spent in telemedicine encounter: I spent 15 minutes reviewing clinical data and/or imaging, obtaining history, examining the patient, communicating with the onsite care team, and in preparation of this report. # Demographics First Name: Salo Last Name: Ankur Facility: [facility] SHANIKA BURCIAGA MD Nov 05, 2024 13:54
--- NOTE | 2024-11-05 18:29 | PROGRESS NOTE- Residence ---
Progress Note - Resident Providers to CC Resident Creating Document: JAIME HUTSON, CHERYL ~ Antibiotic Timeout Antibiotic Ordered?: No Subjective Patient was seen and examined at bedside. Patient is mildly agitated. She denies any chest pain, shortness of breath, abdominal pain, dizziness, syncope. Objective Vital Signs Date Time Temp Pulse Resp B/P (MAP) Pulse Ox O2 Delivery O2 Flow Rate FiO2 11/05/24 15:00 97.0 76 15 138/72 (94) 97 Room Air 11/05/24 10:19 0 21 Result Diagram: 11/05/24 0609 11/05/24 0609 Awake , alert and oriented to time,place, person. HEENT: Atraumatic, normocephalic, PEERLA, anicteric sclera ; conjunctiva is pale, moist mucosal membrane. Neck: Trachea midline. Supple, normal range of motion, no JVD Cardiac: S1, S2 heard,Regular rate and rhythm, no murmurs heard. Chest and Respiratory: Equal breath sounds bilaterally, no tachypnea, wheezing and ronchi are present.Chest wall is symmetric and without deformity. Abdomen: Soft and nontender, no organomegaly, no guarding and rigidity, bowel sounds present no hepatosplenomegaly MSK: Range of motion of all extremities are normal. There is no joint pain or joint swelling or joint erythema. There is no muscle pain or tenderness or swelling. Extremities: warm, well-perfused, No cyanosis, clubbing or edema, 2+ pulses felt Neurological: Speech is clear, alert, and oriented x 4. No sensory or motor deficits. Cranial nerves II-XII intact. Skin: Warm and dry Psychiatry: mildly agitated. Coagulation Studies Laboratory Tests Test 11/05/24 06:09 Prothrombin Time 10.9 SECONDS (9.0-12.0) INR International Normalized Ratio 1.1 INR Coagulation Comments Assessment Assessment A 59-year-old female with possible history of alcohol abuse, COPD, and hypertension admitted for altered level of consciousness, agitation, confusion secondary to alcohol use disorder. Plan Plan Acute metabolic encephalopathy possibly 2/2 alcohol withdrawal, resolved Alcohol use disorder No acute intracranial abnormality on CT head. Patient is hemodynamically stable with no apparent focal deficits White count, lactic acid, Ammonia levels are normal. Urine drug screen is negative and alcohol levels are normal Urinalysis is negative Received Haldol and Ativan in ED Ordered Substance use navigator and started on alcohol withdrawal protocol data services developer was consulted Speech therapy recommended to continue regular diet with thin liquids, PT cleared patient for home discharge Started on folic acid 1 mg IV once daily and thiamine 200 mg IV TID DEANDRA, likely due to vasomotor nephropathy secondary to dehydration On IV normal saline at the rate of 75 cc/hour Continue monitoring BMP Ruled out heart failure Chest x-ray was normal Left ventricle Ejection fraction is 65% on echocardiogram on 11/05/2024 COPD, not in exacerbation DuoNebs q.4 PRN Hypertension urgency Continue on home medication lisinopril 10 mg p.o. once daily IV hydralazine 10 mg p.r.n. when systolic blood pressure is greater than 160 mm of Hg Mild Hypokalemia Potassium is 3.2 Potassium chloride 40 mEq q.4h p.r.n. Code Status: Full code DVT prophylaxis: Heparin Nutrition: Regular diet PT: Ordered Disposition: Patient was admitted for acute metabolic encephalopathy secondary to alcohol withdrawal which improved significantly during the course of hospitalization. Possible discharge in next 48 hours Jaime Hutson MD Internal Medicine Resident PGY-1 Date of Service: Nov 05, 2024 Billing Provider: WATSON HUERTA MD,JAIME GROVER, RES Nov 05, 2024 18:29
--- NOTE | 2024-11-05 21:02 | CARDIOLOGY REPORT ---
APPROVED REPORT EXAM: Limited 2D, Doppler, and color-flow Echocardiogram. 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 Overall systolic function is normal. Overall LVEF is 65-70%. RIGHT VENTRICLE RV is normal size and function. ATRIA The left atrium size is normal. AORTIC VALVE Trileaflet AV appears mildly sclerotic without gross stenosis. Mild insufficiency. Poor Doppler angle s due to lack of adequate imaging windows, quantitative data must be clinically correlated. MITRAL VALVE Mild MV annular calcification without gross stenosis. Trace regurgitation. Poor Doppler angles due to lack of adequate imaging windows, quantitative data must be clinically correlated. TRICUSPID VALVE TV appears structurally normal with trace regurgitation. Poor Doppler angles due to lack of adequate imaging windows, quantitative data must be clinically correlated. PULMONIC VALVE Normal PV without stenosis, physiologic insufficiency. Poor Doppler angles due to lack of adequate im aging windows, quantitative data must be clinically correlated. GREAT VESSELS The aortic root is normal in size. PERICARDIUM Normal pericardium. No effusion. Other Information Study Quality: Technically Limited due to poor Doppler angles and imaging windows. Conclusion Overall LVEF is 65-70%. Normal LV size and wall thickness. Overall systolic function is normal. RV is normal size and function. Trileaflet AV appears mildly sclerotic without gross stenosis. Mild insufficiency. Poor Doppler angle s due to lack of adequate imaging windows, quantitative data must be clinically correlated. Mild MV annular calcification without gross stenosis. Trace regurgitation. Poor Doppler angles due to lack of adequate imaging windows, quantitative data must be clinically correlated. TV appears structurally normal with trace regurgitation. Poor Doppler angles due to lack of adequate imaging windows, quantitative data must be clinically correlated. Normal PV without stenosis, physiologic insufficiency. Poor Doppler angles due to lack of adequate im aging windows, quantitative data must be clinically correlated. Normal pericardium. No effusion.
[2024-11-06 06:00] VITALS: BP 143/85; PULSE 70; RESP 18; TEMP 97.6; O2SAT 95
[2024-11-06 06:36] LABS: MEAN PLATELET VOLUME 7.9 FL (7.4-10.4); RED CELL DISTRIBUTION WIDTH 15.4 % (11.5-14.5)
[2024-11-06 06:52] LABS: INR 1.0 INR
[2024-11-06 06:58] LABS: CREATININE 0.89 MG/DL (0.40-0.90); PHOSPHORUS 3.0 MG/DL (2.3-4.5); TOTAL CARBON DIOXIDE 18.2 MMOL/L (24-32); eCRCL 54 ML/MIN; eGFR 65 ML/MIN
[2024-11-06 08:00] VITALS: RESP 18; O2SAT 95
[2024-11-06 08:31] VITALS: BP_SYST 148
[2024-11-06 10:57] VITALS: PULSE 63; RESP 20; O2SAT 98
[2024-11-06] MEDS ORDERED: LISI10TA27 PO (13:14)
[2024-11-06] MEDS ORDERED: MULT-25 PO (13:14)
[2024-11-06] MEDS ORDERED: FOLI1TAB27 PO (13:14)
[2024-11-06] MEDS ORDERED: ATEN-168 PO (13:14)
[2024-11-06] MEDS ORDERED: thiamine tablet PO (13:14)
--- NOTE | 2024-11-06 20:21 | DISCHARGE SUMMARY-Residence ---
Discharge Summary Providers to CC Resident Creating Document: PAZNAM SERVIN GWEN, RES ~ Discharge Summary Admission Diagnosis: ALOC Hospital Course DATE OF ADMISSION: DATE OF DISCHARGE: Condition on DC: Stable Discharge Summary: Laboratory Tests Test 11/05/24 06:09 11/05/24 06:49 11/06/24 06:02 White Blood Count 6.8 X10'3 6.4 X10'3 Red Blood Count 4.82 X10'6 4.67 X10'6 Hemoglobin 14.2 g/dl 13.8 g/dl Hematocrit 42.8 % 41.6 % Mean Corpuscular Volume 88.8 FL 89.1 FL Mean Corpuscular Hemoglobin 29.5 PG 29.6 PG Mean Corpuscular Hemoglobin Concent 33.2 g/dL 33.3 g/dL Red Cell Distribution Width 15.5 % 15.4 % Platelet Count 219 X10'3 228 X10'3 Mean Platelet Volume 7.5 FL 7.9 FL Neutrophils (%) (Auto) 58.2 % 58.7 % Lymphocytes (%) (Auto) 29.1 % 27.8 % Monocytes (%) (Auto) 9.4 % 10.1 % Eosinophils (%) (Auto) 2.0 % 2.0 % Basophils (%) (Auto) 1.3 % 1.4 % Neutrophils # (Auto) 4.0 X10'3 3.7 X10'3 Lymphocytes # (Auto) 2.0 X10'3 1.8 X10'3 Monocytes # (Auto) 0.6 X10'3 0.6 X10'3 Eosinophils # (Auto) 0.1 X10'3 0.1 X10'3 Basophils # (Auto) 0.1 X10'3 0.1 X10'3 CBC Comment Prothrombin Time 10.9 SECONDS 10.3 SECONDS INR International Normalized Ratio 1.1 INR 1.0 INR Coagulation Comments Sodium Level 139 MMOL/L 137 MMOL/L Potassium Level 3.2 MMOL/L 4.1 MMOL/L Chloride Level 110 MMOL/L 110 MMOL/L Carbon Dioxide Level 16.2 MMOL/L 18.2 MMOL/L Anion Gap 13 9 Blood Urea Nitrogen 10 MG/DL 13 MG/DL Creatinine 0.79 MG/DL 0.89 MG/DL Estimated GFR/1.73 m2 74 ML/MIN 65 ML/MIN BUN/Creatinine Ratio 12.7 14.6 Glucose Level 81 MG/DL 88 MG/DL Lactic Acid Level 1.0 MMOL/L Calcium Level 8.2 MG/DL 8.4 MG/DL Phosphorus Level 2.6 MG/DL 3.0 MG/DL Magnesium Level 1.9 MG/DL 1.7 MG/DL Total Bilirubin 0.7 MG/DL 0.5 MG/DL Aspartate Amino Transf (AST/SGOT) 35 U/L 33 U/L Alanine Aminotransferase (ALT/SGPT) 15 U/L 20 U/L Alkaline Phosphatase 63 IU/L 55 IU/L Total Protein 6.0 G/DL 5.6 G/DL Albumin 3.2 G/DL 2.8 G/DL Globulin 2.8 G/DL 2.8 G/DL Albumin/Globulin Ratio 1.1 1.0 Amylase Level 55 U/L 55 U/L Lipase 22 U/L 34 U/L Procalcitonin < 0.05 NG/ML Chemistry Comments Date of Service: Nov 06, 2024 Billing Provider: WATSON HUERTA MD, SOWMYA MANJARI, RES Nov 06, 2024 20:21
== END 2024-11-06 14:32 | disposition home or self-care (01) | DRG 52 ==
LOC: ER 15:28 → ED HOLD 19:40 → EDBEDREQ 21:29 → ORTHO 4S 23:00 → PCU 3S 11-05 04:09
PROVIDERS: ADMIT Internal Medicine; ATTEND Family Medicine
DX: G92.8 Other toxic encephalopathy (principal); N17.0 Acute kidney failure with tubular necrosis; E86.0 Dehydration; J44.9 Chronic obstructive pulmonary disease, unspecified; I10 Essential (primary) hypertension; I16.0 Hypertensive urgency; E87.6 Hypokalemia; Y90.0 Blood alcohol level of less than 20 mg/100 ml; F10.139 Alcohol abuse with withdrawal, unspecified
CPT/HCPCS: 36415; 70450; 71045; 80048; 80053; 80076; 80305; 80320; 81001; 82140; 82150; 82607; 82948; 83605; 83690; 83735; 83880; 84100; 84145; 84443; 84484; 85025; 85610; 87081; 92508; 92616; 93005; 93308; 94760; 96361; 96372; 96374; 97116; 97161; 99285; G0378; J0360; J1630; J1644; J3360; J3411; J3490; J7030